=== PATIENT | male | born 1940 | race Caucasian/White ===

== ENCOUNTER 2022-12-07 10:32 | Outpatient (CLI) | payer MEDICARE, OTHER ==
[2022-12-07 11:38] LABS: #Basophils 0.1 10x3/uL (0.0-0.2); #Eosinphils 0.2 10x3/uL (0.0-0.5); #Monocytes 0.7 10x3/uL (0.0-1.1); #Neutrophils 5.8 10x3/uL (1.5-8.4); %Basophils 0.8 % (0.0-2.0); %Eosinophils 2.1 % (0.0-6.0); %Lymphocytes 22.2 % (18.0-47.0); %Monocytes 7.9 % (0.0-10.0); %Neutrophils 66.8 % (40.0-75.0); Hemoglobin 13.8 g/dL (13.5-17.5); Mean Corpuscular HGB CONC 32.9 g/dL (32.0-36.0); Mean Corpuscular Hemoglobin 29.7 pg (27.0-33.0); Mean Corpuscular Volume 90.5 fl (81.2-95.1); Mean Platelet Volume 9.5 fl (7.4-10.4); Platelet Count 258 10x3/uL (150-450); RBC Distribution Width 14.1 % (11.5-14.5); Red Blood Cell (RBC) Count 4.64 10x6/uL (4.32-5.72); White Blood Cell (WBC) Count 8.7 10x3/uL (3.5-10.5)
[2022-12-07 12:13] LABS: Anion Gap 15 mmol/L (10-20); BUN (Urea Nitrogen) 22 mg/dL (8.4-25.7); Calc. Creatinine Clearance 0 mL/min (70-130); Calcium 9.3 mg/dL (7.8-10.44); Carbon Dioxide 23 mmol/L (23-31); Chloride 106 mmol/L (98-107); Estimated GFR 88; Glucose 101 mg/dL (83-110); Potassium 4.5 mmol/L (3.5-5.1); Sodium 139 mmol/L (136-145)
== END 2022-12-07 10:33 | disposition home or self-care (01) ==
LOC: LABBT 10:32
PROVIDERS: ATTEND Surgery
DX: Z01.812 Encounter for preprocedural laboratory examination (principal); K40.20 Bilateral inguinal hernia, without obstruction or gangrene, not specified as recurrent
CPT/HCPCS: 80048; 85025

== ENCOUNTER 2022-12-10 09:17 | Day surgery (SDC) | payer MEDICARE, OTHER ==
[2022-12-07 11:25] VITALS: BMI 25.2
[2022-12-10] MEDS ORDERED: fentaNYL PF 100 MCG/2 ML SYRINGE ONE (13:08)
[2022-12-10] MEDS ORDERED: EPINEPHrine 1 MG/ML AMP ONE (13:19)
[2022-12-10] MEDS ORDERED: Bupivacaine 0.25% HCL 30 ML VIAL ONE (13:19)
[2022-12-10] MEDS ORDERED: Sodium Chloride 0.9% 100 ML ONE (13:30)
[2022-12-10] MEDS ORDERED: CEFAZOLIN 2 GM VIAL ONE (13:31)
[2022-12-10] MEDS ORDERED: Ondansetron PF 4 MG/2 ML Vial ONE (13:40)
[2022-12-10] MEDS ORDERED: Dexamethasone 20 MG/5 ML VIAL ONE (13:40)
[2022-12-10] MEDS ORDERED: ePHEDrine Sulfate 50 MG/10 ML VIAL ONE (13:40)
[2022-12-10] MEDS ORDERED: Lidocaine 1% PF 5 ML VIAL ONE (13:40)
[2022-12-10] MEDS ORDERED: PROPOFOL 200 MG/20 ML VIAL ONE (13:40)
[2022-12-10] MEDS ORDERED: Rocuronium Bromide 10 MG/ML (10ML VIAL) ONE (13:40)
[2022-12-10] MEDS ORDERED: SUGAMMADEX SODIUM 200 MG/2 ML VIAL ONE ×2 (13:55→14:27)
[2022-12-10] MEDS ORDERED: fentaNYL 50 mcg/mL 1 mL Vial ONE ×2 (15:07→15:41)
[2022-12-10] MEDS ORDERED: HYDROmorphone 0.5 MG/0.5 ML SYRINGE ONE (15:19)
== END 2022-12-10 16:55 | disposition home or self-care (01) ==
LOC: SDC 09:17
PROVIDERS: ATTEND Surgery
PROC: 0YUA4JZ Supplement Bilateral Inguinal Region with Synthetic Substitute, Percutaneous Endoscopic Approach (ICD-10-PCS; principal; 2022-12-10)
DX: K40.20 Bilateral inguinal hernia, without obstruction or gangrene, not specified as recurrent (principal); Z88.0 Allergy status to penicillin; Z91.018 Allergy to other foods
CPT/HCPCS: 49650; 93005; A4314; C1781 ×2; J3010; 93010; J0171; J1100; J1170; J2405; J2704; J3490; S0020